=== PATIENT | female | born 1990 | race Caucasian/White ===

== ENCOUNTER 2017-07-28 11:37 | Emergency (ER) | payer OTHER ==
[2017-07-28 11:57] VITALS: RESP 18
[2017-07-28] MEDS ORDERED: NS 1,000 ML IV ONE (12:28)
[2017-07-28] MEDS ORDERED: KETOROLAC 30 MG/1 ML SDV IVP ONE (12:29)
--- NOTE | 2017-07-28 12:31 | EDPHY ---
H & P Stated Complaint: migraine, congestion, dizziness for past 3 days Time Seen by Provider: 07/28/17 12:21 HPI/ROS: CHIEF COMPLAINT: Cough HISTORY OF PRESENT ILLNESS: The patient is a 27-year-old female who comes to the emergency department complaining of a cough for the last 3 days that is productive. No shortness of breath. She has felt warm but has not had a fever. She also has a history of chronic migraines and states that this is exacerbating her migraine symptoms. Her dad is a physician in usually gives her an IM Toradol shot which improved her symptoms. She presented to an urgent care 2 days ago and had a negative flu swab. She is here requesting IV fluids, Toradol and x-ray. REVIEW OF SYSTEMS: Constitutional: denies: chills, fever, recent illness, recent injury EENTM: denies: blurred vision, double vision, nose congestion Respiratory: See HPI Cardiac: denies: chest pain, irregular heart rate, lightheadedness, palpitations Gastrointestinal/Abdominal: denies: abdominal pain, diarrhea, nausea, vomiting, blood streaked stools Genitourinary: denies: dysuria, frequency, hematuria, pain Musculoskeletal: denies: joint pain, muscle pain Skin: denies: lesions, rash, jaundice, bruising Neurological: denies: headache, numbness, paresthesia, tingling, dizziness, weakness Hematologic/Lymphatic: denies: blood clots, easy bleeding, easy bruising Immunologic/allergic: denies: HIV/AIDS, transplant EXAM: GENERAL: Well-appearing, well-nourished and in no acute distress. HEAD: Atraumatic, normocephalic. EYES: Pupils equal round and reactive to light, extraocular movements intact, sclera anicteric, conjunctiva are normal. ENT: TMs normal, nares patent, oropharynx clear without exudates. Moist mucous membranes. NECK: Normal range of motion, supple without lymphadenopathy or JVD. LUNGS: Breath sounds clear to auscultation bilaterally and equal. No wheezes rales or rhonchi., productive cough HEART: Regular rate and rhythm without murmurs, rubs or gallops. ABDOMEN: Soft, nontender, normoactive bowel sounds. No guarding, no rebound. No masses appreciated. BACK: No CVA tenderness, no spinal tenderness, step-offs or deformities EXTREMITIES: Normal range of motion, no pitting or edema. No clubbing or cyanosis. NEUROLOGICAL: Cranial nerves II through XII grossly intact. Normal speech, normal gait. 5/5 strength, normal movement in all extremities, normal sensation PSYCH: Normal mood, normal affect. SKIN: Warm, dry, normal turgor, no visible rashes or lesions. Source: Patient Exam Limitations: No limitations - Personal History LMP (Females 10-55): 15-21 Days Ago Current Tetanus/Diphtheria Vaccine: Yes Current Tetanus Diphtheria and Acellular Pertussis (TDAP): Yes Tetanus Vaccine Date: < 10 years - Medical/Surgical History Hx Asthma: No Hx Chronic Respiratory Disease: No Hx Diabetes: No Hx Cardiac Disease: No Hx Renal Disease: No Hx Cirrhosis: No Hx Alcoholism: No Hx HIV/AIDS: No Hx Splenectomy or Spleen Trauma: No Other PMH: migraines, depression, anxiety, herpes - Family History Significant Family History: No pertinent family hx - Social History Smoking Status: Never smoked Alcohol Use: Sober Drug Use: None Constitutional: Initial Vital Signs Temperature (C) 36.7 C 07/28/17 11:54 Heart Rate 100 07/28/17 11:54 Respiratory Rate 18 07/28/17 11:54 Blood Pressure 95/59 L 07/28/17 11:54 O2 Sat (%) 95 07/28/17 11:54 O2 Delivery Mode Room Air Allergies/Adverse Reactions: acetaminophen [From Percocet] Allergy (Verified 07/28/17 11:53) oxycodone [From Percocet] Allergy (Verified 07/28/17 11:53) Home Medications: Medication Instructions Recorded Albuterol [Proventil Inhaler] 1 - 2 puffs IH Q4H #1 mdi 07/28/17 CLONAZEPAM 07/28/17 LaMICtal 07/28/17 Metoclopramide [Reglan 10 mg tab 10 mg PO BID PRN #10 tab 07/28/17 (RX)] Prozac 20 MG (*) 07/28/17 TRENTAL 400mg (*) 07/28/17 Valtrex 07/28/17 Medical Decision Making - Diagnostics Imaging: Discussed imaging studies w/ study abroad coordinator Radiologist ED Course/Re-evaluation: 1:55 p.m. we discussed her x-ray results. I will treat her with albuterol for bronchitis. She states that she has taken Mucinex and still has a difficult time getting up her mucus. Her migraine is much better after Toradol. We discussed other options such as Reglan. She would like to take this at home but does not want to be sedated here. Differential Diagnosis: Partial list of the Differential diagnosis considered include but were not limited to; migraine, bronchitis and although unlikely based on the history and physical exam, I also considered pneumonia, influenza, meningitis, sepsis. I discussed these differential diagnoses and the plan with the patient as well as the usual and expected course. The patient understands that the diagnosis is provisional and that in medicine we are not always correct and that further workup is often warranted. Usual and customary warnings were given. All of the patient's questions were answered. The patient was instructed to return to the emergency department should the symptoms at all worsen or return, otherwise to followup with the physician as we discussed. - Data Points Medications Given: Discontinued Medications Albuterol/Ipratropium (Duoneb) 3 ml IH EDNOW ONE Stop: 07/28/17 13:56 Last Admin: 07/28/17 14:05 Dose: 3 ml Sodium Chloride (Ns) 1,000 mls @ 0 mls/hr IV ONCE ONE; Wide Open PRN Reason: Protocol Stop: 07/28/17 12:29 Last Admin: 07/28/17 12:59 Dose: 1,000 mls Ketorolac Tromethamine (Toradol) 15 mg IVP EDNOW ONE Stop: 07/28/17 12:30 Last Admin: 07/28/17 12:59 Dose: 15 mg Departure - Departure Disposition: Home, Routine, Self-Care Clinical Impression: Bronchitis Migraine Qualifiers: Migraine type: unspecified Status migrainosus presence: without status migrainosus Intractability: not intractable Qualified Code(s): G43.909 - Migraine, unspecified, not intractable, without status migrainosus Condition: Fair Instructions: Migraine Headache (ED), Acute Bronchitis (ED) Referrals: UNKNOWN,UNKNOWN [Other] - As per Instructions Gomez Marrero MD [Medical Doctor] - As per Instructions Prescriptions: Albuterol [Proventil Inhaler] 1 - 2 puffs IH Q4H #1 mdi Metoclopramide [Reglan 10 mg tab (RX)] 10 mg PO BID PRN #10 tab PRN Reason: Headache
[2017-07-28] MEDS ORDERED: IPRATROPIUM/ALBUTEROL 3 ML DEYVIAL IH ONE (13:55)
[2017-07-28 14:16] VITALS: BP 103/56; PULSE 102; TEMP 98.2; O2SAT 100
== END 2017-07-28 14:24 | disposition home or self-care (01) ==
DX: J40 Bronchitis, not specified as acute or chronic (principal); G43.909 Migraine, unspecified, not intractable, without status migrainosus; E86.9 Volume depletion, unspecified
CPT/HCPCS: 96374; J1885

== ENCOUNTER 2018-03-10 15:05 | Emergency (ER) | payer OTHER ==
--- NOTE | 2018-03-10 15:09 | EDPHY ---
H & P Time Seen by Provider: 03/10/18 15:08 HPI/ROS: Chief complaint. Rule out bowel obstruction HPI. 28-year-old female here by EMS from [facility] to rule out bowel obstruction. Patient has not had a bowel movement in 5 days. She has nausea but no vomiting. No previous abdominal surgery. No previous abdominal history. She has crampy periumbilical pain without radiation. No fever. No urinary symptoms. She has tried Colace without success. Denies history of constipation ROS Constitutional. no fever/chills, no weakness Eyes. no problems with vision ENT. no sore throat, no nasal drainage Cardiovascular. no chest pain Respiratory. no shortness of breath, no cough Abdominal. Abdominal pain with nausea . no problems urinating MS. no calf pain/swelling, no neck/back pain, no joint pain Skin. no rash Lymph. no swollen glands Neuro. no headache, no dizziness, no difficulty walking or with speech Past Medical/Surgical History: Past medical history significant for migraines, depression Social History: Single, nonsmoker, no alcohol Smoking Status: Never smoked Physical Exam: General Appearance: Alert well-developed female mild distress vital signs stable Eyes: Pupils equal and round no pallor or injection. ENT, Mouth: Mucous membranes are moist. Respiratory: There are no retractions, lungs are clear to auscultation. Cardiovascular: Regular rate and rhythm. Gastrointestinal: Abdomen is soft and minimally tender in the epigastric and periumbilical area. Normal bowel sounds. No masses. Neurological: Awake and alert, sensory and motor exams grossly normal. Skin: Warm and dry, no rashes. Musculoskeletal: Neck is supple nontender. Extremities symmetrical, full range of motion. Psychiatric: Patient is oriented X 3, there is no agitation. Constitutional: Initial Vital Signs Temperature (C) 36.6 C 03/10/18 15:14 Heart Rate 62 03/10/18 15:14 Respiratory Rate 18 03/10/18 15:14 Blood Pressure 110/66 03/10/18 15:14 O2 Sat (%) 97 03/10/18 15:14 O2 Delivery Mode Room Air Allergies/Adverse Reactions: acetaminophen [From Percocet] Allergy (Verified 07/28/17 11:53) oxycodone [From Percocet] Allergy (Verified 07/28/17 11:53) Home Medications: Medication Instructions Recorded Albuterol [Proventil Inhaler] 1 - 2 puffs IH Q4H #1 mdi 07/28/17 CLONAZEPAM 07/28/17 LaMICtal 07/28/17 Metoclopramide [Reglan 10 mg tab 10 mg PO BID PRN #10 tab 07/28/17 (RX)] Prozac 20 MG (*) 07/28/17 TRENTAL 400mg (*) 07/28/17 Valtrex 07/28/17 Lamictal 03/10/18 Medical Decision Making - Diagnostics Imaging Results: Upright KUB interpreted by me is no evidence for free air or air-fluid levels. Consistent with mild constipation Dr. Ramirez and I discussed incidental findings of calcification adjacent to spoke spinous processes of L2 and L5. Because of this is unclear but I do not think related to her constipation and abdominal pain. Patient does not have symptoms of either pancreatitis or kidney stone ED Course/Re-evaluation: Re-evaluation 3:50 p.m.. Patient and I discussed imaging study results, treatment plan including criteria for return and importance of follow-up and further evaluation. She expresses understanding and agreement. Differential Diagnosis: I considered bowel obstruction however the patient has had no previous surgery and no evidence of air-fluid levels or free air on her x-ray. History and findings are consistent with constipation Departure - Departure Disposition: Home, Routine, Self-Care Clinical Impression: Abdominal pain Qualifiers: Abdominal location: epigastric Qualified Code(s): R10.13 - Epigastric pain Condition: Good Instructions: Constipation (ED), High Fiber Diet (ED) Additional Instructions: Drink apple juice and prune juice. Magnesium citrate in green bottle from the grocery store as directed. Milk of magnesia 3 tsp at bedtime. Bisacodyl (do call oxygen) using 5-15 mg daily for bowel movement. Colace 240 mg daily Return for worsening symptoms. Recheck in 2-3 days if not improved Referrals: Patient,NotPresent [Unknown] - As per Instructions
--- NOTE | 2018-03-10 15:09 | EDPHY ---
H & P Time Seen by Provider: 03/10/18 15:08 - Personal History Tetanus Vaccine Date: < 10 years - Medical/Surgical History Hx Asthma: No Hx Chronic Respiratory Disease: No Hx Diabetes: No Hx Cardiac Disease: No Hx Renal Disease: No Hx Cirrhosis: No Hx Alcoholism: No Hx HIV/AIDS: No Hx Splenectomy or Spleen Trauma: No Other PMH: migraines, depression, anxiety, herpes - Social History Smoking Status: Never smoked Allergies/Adverse Reactions: acetaminophen [From Percocet] Allergy (Verified 07/28/17 11:53) oxycodone [From Percocet] Allergy (Verified 07/28/17 11:53) Home Medications: Medication Instructions Recorded Albuterol [Proventil Inhaler] 1 - 2 puffs IH Q4H #1 mdi 07/28/17 CLONAZEPAM 07/28/17 LaMICtal 07/28/17 Metoclopramide [Reglan 10 mg tab 10 mg PO BID PRN #10 tab 07/28/17 (RX)] Prozac 20 MG (*) 07/28/17 TRENTAL 400mg (*) 07/28/17 Valtrex 07/28/17 Medical Decision Making ED Course/Re-evaluation: CHIEF COMPLAINT: HISTORY OF PRESENT ILLNESS: The patient is a 28 y/o female with a history of migraines, depression, and anxiety arriving REVIEW OF SYSTEMS: A 10 point review of systems was performed and is negative with the exception of the elements mentioned in the history of present illness. PHYSICAL EXAM: HR, BP, O2 Sat, RR. Temp noted General Appearance: Alert, well hydrated, appropriate, and non-toxic appearing. Head: Atraumatic without scalp tenderness or obvious injury Eyes: Pupils equal, round, reactive to light and accommodation, EOMI, no trauma , no injection. Ears: Clear bilaterally, no perforation, normal landmarks Nose: Atraumatic, no rhinorrhea, clear. Throat: There is no erythema or exudates, no lesions, normal tonsils, mucus membranes moist. Neck: Supple, 2+ carotid upstroke, nontender, no lymphadenopathy. Respiratory: No retractions, no distress, no wheezes, and no accessory muscle use. Lungs are clear to auscultation bilaterally. Cardiovascular: Regular rate and rhythm, no murmurs, rubs, or gallops. Bilateral carotid, radial, dorsalis pedis, and posterior tibial pulses intact. Good capillary refill all extremities. Gastrointestinal: Abdomen is soft, nontender, non-distended, no masses, no rebound, no guarding, no peritoneal signs. Musculoskeletal: Normal active ROM of all extremities, atraumatic. Neurological: Alert, appropriate, and interactive. The patient has normal DTRs and non-focal cranial nerves, motor, sensory, and cerebellar exam. Skin: No rashes, good turgor, no nodules on palpation. Past medical history: Migraines, depression, anxiety, herpes Past surgical history: Denies Family history: Denies Social history: Lives in [place], single, not employed DIAGNOSTICS/PROCEDURES/CRITICAL CARE TIME: DIFFERENTIAL DIAGNOSIS: MEDICAL DECISION MAKING: Report Scribed for: Enrico Wu Report Scribed by: Kamila Oh Date of Report: 03/10/18 Time of Report: 15:10
[2018-03-10 16:20] VITALS: BP 110/62
== END 2018-03-10 16:19 | disposition home or self-care (01) ==
LOC: EDUNIT#
DX: R10.13 Epigastric pain (principal)

== ENCOUNTER 2018-05-09 | Emergency (ER) | payer OTHER | END 2018-05-09 13:29 | disposition left against medical advice (07) ==

== ENCOUNTER → 2018-11-07 | Outpatient (CLI) | payer OTHER | LOC: BMCIMAGING 15:05 | PROVIDERS: ATTEND Family Medicine | DX: Z13.820 Encounter for screening for osteoporosis (principal); F50.9 Eating disorder, unspecified; M81.0 Age-related osteoporosis without current pathological fracture; R93.7 Abnormal findings on diagnostic imaging of other parts of musculoskeletal system ==

== ENCOUNTER 2019-02-04 22:45 | Emergency (ER) | payer OTHER ==
[2019-02-04] MEDS ORDERED: KETOROLAC 30 MG/1 ML SDV IVP ONE (23:00)
[2019-02-04] MEDS ORDERED: METOCLOPRAMIDE 10 MG/2 ML VIAL IVP ONE (23:00)
[2019-02-04] MEDS ORDERED: DEXAMETHASONE 10 MG/ML VIAL IVP ONE (23:00)
[2019-02-04] MEDS ORDERED: NS 1,000 ML IV ONE (23:00)
[2019-02-04] MEDS ORDERED: METOCLOPRAMIDE 10 MG/2 ML VIAL ONE (23:02)
[2019-02-04] MEDS ORDERED: KETOROLAC 15 MG/1 ML SDV ONE (23:02)
--- NOTE | 2019-02-05 00:08 | EDPHY ---
H & P Stated Complaint: MIGRAINE Time Seen by Provider: 02/04/19 22:53 HPI/ROS: Chief complaint: Migraine headache History of present illness: This is a 29-year-old female who presents to the emergency department for evaluation of a migraine headache. She reports the onset of symptoms over the last few days. Symptoms have been slowly worsening. She describes pain on the right side of her head. She is developing visual disturbances, described as different kinds of shapes, especially when she closes her eyes. She has had associated nausea and some dizziness. She has photophobia. Again, she reports a long history of migraine headaches. This is similar to previous ones. There is nothing new or different as compared to previous migraine headache. This was not thunderclap in nature. It is not the worst headache of her life. No report of fever. No report of trauma. She has been to ERs in the past and is usually given Toradol which controls symptoms. Review of systems: A 10 point review of systems was obtained and other than described above was negative - Personal History LMP (Females 10-55): 1-7 Days Ago Current Tetanus Diphtheria and Acellular Pertussis (TDAP): Yes Tetanus Vaccine Date: < 10 years - Medical/Surgical History Hx Asthma: No Hx Chronic Respiratory Disease: No Hx Diabetes: No Hx Cardiac Disease: No Hx Renal Disease: No Hx Cirrhosis: No Hx Alcoholism: No Hx HIV/AIDS: No Hx Splenectomy or Spleen Trauma: No Other PMH: migraines, depression, anxiety, herpes/ back surg - Social History Smoking Status: Never smoked - Physical Exam Exam: General Appearance: Alert, non toxic. Eyes: Pupils equal and round no pallor or injection. ENT, Mouth: Mucous membranes moist. Respiratory: There are no retractions, lungs are clear to auscultation. Cardiovascular: Regular rate and rhythm. Gastrointestinal: Abdomen is soft and non tender, no masses, bowel sounds normal. Neurological: Alert and oriented x4. Cranial nerves 2-12 grossly intact. Strength and sensation intact and symmetrical. Skin: Warm and dry, no rashes. Musculoskeletal: Neck is supple non tender. Extremities are symmetrical, full range of motion. Psychiatric: Patient is oriented X 3, there is no agitation. Constitutional: Initial Vital Signs Temperature (C) 36.5 C 02/04/19 22:49 Heart Rate 75 02/04/19 22:49 Respiratory Rate 16 02/04/19 22:49 Blood Pressure 110/75 02/04/19 22:49 O2 Sat (%) 98 02/04/19 22:49 O2 Delivery Mode Room Air Allergies/Adverse Reactions: oxycodone [From Percocet] Allergy (Verified 07/28/17 11:53) Home Medications: Medication Instructions Recorded Albuterol [Proventil Inhaler] 1 - 2 puffs IH Q4H #1 mdi 07/28/17 CLONAZEPAM 07/28/17 LaMICtal 07/28/17 Metoclopramide [Reglan 10 mg tab 10 mg PO BID PRN #10 tab 07/28/17 (RX)] Prozac 20 MG (*) 07/28/17 TRENTAL 400mg (*) 07/28/17 Valtrex 07/28/17 Lamictal 03/10/18 Medical Decision Making ED Course/Re-evaluation: Patient seen under the supervision of my secondary supervising physician Dr. Dayday Tijerina. Patient presents to the emergency department for a migraine headache. She reports a long history of headaches. She states this is typical in nature. There is nothing new or different today. No fever, no trauma, it was not thunderclap in nature, it is not the worst headache of her life. I do not appreciate red flag risk factors for serious pathology. I do not believe further evaluation including imaging studies or lumbar puncture are warranted. An IV is started and she is symptomatically treated. On re-evaluation she states she is feeling much better. She is requesting to be discharged home. Home care is discussed. She is asked to follow up with her primary care doctor this week for recheck. Strict return precautions are given. The patient voiced understanding and agreement with plan. Differential Diagnosis: Included but not limited to migraine headache, tension headache, chronic daily headache, doubtful intracranial mass or bleed or meningitis - Data Points Medications Given: Discontinued Medications Dexamethasone (Decadron Injection) 10 mg IVP EDNOW ONE Stop: 02/04/19 23:01 Last Admin: 02/04/19 23:06 Dose: 10 mg Diphenhydramine HCl (Benadryl Injection) 25 mg IVP EDNOW ONE Stop: 02/04/19 23:01 Last Admin: 02/04/19 23:06 Dose: 25 mg Sodium Chloride (Ns) 1,000 mls @ 0 mls/hr IV ONCE ONE; Wide Open PRN Reason: Protocol Stop: 02/04/19 23:01 Last Admin: 02/04/19 23:06 Dose: 1,000 mls Ketorolac Tromethamine (Toradol) 30 mg IVP EDNOW ONE Stop: 02/04/19 23:01 Last Admin: 02/04/19 23:07 Dose: 30 mg Metoclopramide HCl (Reglan Injection) 10 mg IVP EDNOW ONE Stop: 02/04/19 23:01 Last Admin: 02/04/19 23:06 Dose: 10 mg Departure - Departure Disposition: Home, Routine, Self-Care Clinical Impression: Headache Qualifiers: Headache type: unspecified Headache chronicity pattern: acute headache Intractability: not intractable Qualified Code(s): R51 - Headache Condition: Good Instructions: Acute Headache (ED) Additional Instructions: Follow-up with your primary care doctor or neural but just for continued evaluation and care If symptoms worsen or new symptoms develop return to the emergency room for recheck Referrals: Gordo Givens DO [Primary Care Provider] - As per Instructions Shant Amin MD [Medical Doctor] - As per Instructions
[2019-02-05 00:11] VITALS: BP 120/84
== END 2019-02-05 00:17 | disposition home or self-care (01) ==
DX: G43.909 Migraine, unspecified, not intractable, without status migrainosus (principal); E86.9 Volume depletion, unspecified
CPT/HCPCS: 96374; J1100; J1200; J1885; J2765